=== PATIENT | female | born 1945 | race Caucasian/White ===

== ENCOUNTER 2020-07-26 14:15 | Outpatient (REF) | payer MEDICARE, OTHER, SELFPAY ==
[2020-07-26 15:00] LABS: Alanine Aminotransferase 33 U/L (0-31); Albumin Level 4.5 g/dL (3.5-5.0); Alkaline Phosphatase 102 U/L (39-117); Aspartate Amino Transferase 29 U/L (5-31); Bilirubin Direct 0.6 mg/dL (0.0-0.5); Bilirubin Total 2.1 mg/dL (0.0-1.0); Total Protein 6.7 g/dL (6.5-8.0)
== END 2020-07-26 14:16 | disposition home or self-care (01) ==
LOC: HO.LNP 14:15
PROVIDERS: Visit Provider Internal Medicine
DX: E78.00 Pure hypercholesterolemia, unspecified (principal)
CPT/HCPCS: 80076

== ENCOUNTER 2020-08-23 10:18 | Outpatient (REF) | payer MEDICARE, OTHER, SELFPAY ==
[2020-08-23 11:13] LABS: Alanine Aminotransferase 43 U/L (0-31); Albumin Level 4.4 g/dL (3.5-5.0); Alkaline Phosphatase 101 U/L (39-117); Aspartate Amino Transferase 31 U/L (5-31); Bilirubin Direct 0.5 mg/dL (0.0-0.5); Bilirubin Total 1.4 mg/dL (0.0-1.0); Total Protein 6.5 g/dL (6.5-8.0)
== END 2020-08-23 10:19 | disposition home or self-care (01) ==
LOC: HO.LNP 10:18
PROVIDERS: Visit Provider Internal Medicine
DX: R79.89 Other specified abnormal findings of blood chemistry (principal)
CPT/HCPCS: 80076

== ENCOUNTER 2021-01-22 10:29 | Outpatient (REF) | payer MEDICARE, OTHER, SELFPAY ==
[2021-01-22 10:32] LABS: MANUAL DIFF FLAG NO
[2021-01-22 10:59] LABS: Basophils Percent Auto 0.7 % (0-2); Eosinophils Absolute Auto 0.2 X10*3/uL (0.0-0.4); Eosinophils Percent Auto 2.8 % (0-4); Hematocrit 45.6 % (37-47); Hemoglobin 15.1 g/dl (12.0-16.0); Imm Gran Abs Auto 0.01 X10*3/uL (0.00-0.03); Imm Gran Pct Auto 0.2 % (0.0-0.4); Lymphocytes Percent Auto 37.4 % (20-40); Mean Corpuscular HGB Conc 33.1 g/dl (31.0-35.0); Mean Corpuscular Hemoglobin 30.1 pg (27.0-33.0); Mean Corpuscular Volume 90.8 fL (80-98); Monocytes Absolute Auto 0.4 X10*3/uL (0.1-1.2); Monocytes Percent Auto 8.1 % (2-11); Neutrophils Absolute Auto 2.7 X10*3/uL (2.0-8.3); Neutrophils Percent Auto 50.8 % (45-73); Platelet Count 212 X10*3/uL (160-400); Red Blood Count 5.02 X10*6/uL (4.20-5.50); Red Cell Distribution Width 12.7 % (11.0-16.0); White Blood Count 5.4 X10*3/uL (4.8-10.8)
[2021-01-22 11:14] LABS: Alanine Aminotransferase 77 U/L (0-31); Albumin Level 4.2 g/dL (3.5-5.0); Alkaline Phosphatase 101 U/L (39-117); Anion Gap 11 (12-20); Aspartate Amino Transferase 43 U/L (5-31); Blood Urea Nitrogen 13 mg/dL (9-16); Calcium 9.3 mg/dL (8.4-10.2); Carbon Dioxide 27 mmol/L (22-29); Chloride 109 mmol/L (96-108); Cholesterol 165 mg/dL; Estimated Glomerular Filt Rate > 60; Glucose Fasting 88 mg/dL (60-99); HDL Cholesterol 61 mg/dL; LDL Cholesterol Calculated 88 mg/dl; Potassium 3.8 mmol/L (3.3-5.1); Sodium 143 mmol/L (135-145); Total Protein 6.3 g/dL (6.5-8.0); Triglycerides 82 mg/dL
[2021-01-22 11:23] LABS: Reflex LDLD? No
[2021-01-22 11:32] LABS: Appearance Urine CLEAR; Color Urine YELLOW; Glucose Urine UA NEG (NEG); Leukocyte Esterase Urine NEG (NEG); Nitrite Urine NEG (NEG); Urine Blood NEG (NEG); Urine Ketones NEG (NEG); Urine Protein NEG (NEG-TRACE)
== END 2021-01-22 10:30 | disposition home or self-care (01) ==
LOC: HO.LNP 10:29
PROVIDERS: Visit Provider Internal Medicine
DX: E78.00 Pure hypercholesterolemia, unspecified (principal); M85.80 Other specified disorders of bone density and structure, unspecified site; R79.89 Other specified abnormal findings of blood chemistry
CPT/HCPCS: 80053; 80061; 81003; 85025

== ENCOUNTER 2021-02-26 11:02 | Outpatient (REF) | payer MEDICARE, OTHER, SELFPAY ==
[2021-02-26 13:12] LABS: Alanine Aminotransferase 21 U/L (0-31); Albumin Level 4.4 g/dL (3.5-5.0); Alkaline Phosphatase 72 U/L (39-117); Aspartate Amino Transferase 25 U/L (5-31); Bilirubin Direct 0.5 mg/dL (0.0-0.5); Bilirubin Total 1.7 mg/dL (0.0-1.0); Total Protein 6.4 g/dL (6.5-8.0)
== END 2021-02-26 11:03 | disposition home or self-care (01) ==
LOC: HO.LNP 11:02
PROVIDERS: PCP Internal Medicine; Visit Provider Internal Medicine
DX: R79.89 Other specified abnormal findings of blood chemistry (principal)
CPT/HCPCS: 80076

== ENCOUNTER 2021-03-05 10:13 | Outpatient (REF) | payer MEDICARE, OTHER, SELFPAY ==
--- NOTE | ~2021-03-05 | US_ITS ---
EXAMINATION: US ABDOMEN COMPLETE CLINICAL INFORMATION: Elevated LFTs. COMPARISON: None TECHNIQUE: Real-time imaging of the abdominal viscera. FINDINGS: PANCREAS: Normal. ABDOMINAL AORTA: The proximal, mid, and distal segments are normal in caliber. INFERIOR VENA CAVA: Visualized portions are normal. LIVER: Normal. The liver is normal in size. The liver contour is normal. Parenchymal echogenicity is normal. No focal hepatic lesion. There is no intrahepatic biliary duct dilatation seen. GALLBLADDER: The gallbladder is physiologically distended without evidence of stones, polyps, wall thickening or pericholecystic fluid. There is echogenic debris and sludge seen. COMMON BILE DUCT: Normal in caliber measuring 0.4 cm in diameter. RIGHT KIDNEY: No hydronephrosis or renal calculi. The kidney measures 11.8 cm in maximum dimension. There is anechoic cyst in the upper pole measuring 1.8 x 1.1 x 1.3 cm and 6.8 x 4.7 x 6.0 cm. LEFT KIDNEY: No hydronephrosis. No renal calculi or focal parenchymal lesions. The kidney measures 10.2 cm in maximum dimension. There are several echogenic foci seen with no twinkle artifact. SPLEEN: Normal. The spleen measures 9.0 cm in maximum dimension. FREE FLUID: None. US/US abdomen complete IMPRESSION: Echogenic gallbladder sludge and debris. At least 2 right renal cyst. No echogenic renal calculi or hydronephrosis. Few scattered echogenic foci with no twinkle artifact left kidney. Rest of the abdominal ultrasound is unremarkable.
== END 2021-03-05 10:14 | disposition home or self-care (01) ==
LOC: HO.US 10:13
PROVIDERS: PCP Internal Medicine; Visit Provider Internal Medicine
DX: R79.89 Other specified abnormal findings of blood chemistry (principal)
CPT/HCPCS: 76700

== ENCOUNTER 2021-06-11 10:24 | Outpatient (REF) | payer MEDICARE, OTHER, SELFPAY ==
[2021-06-11 11:01] LABS: Alanine Aminotransferase 17 U/L (0-31); Albumin Level 4.3 g/dL (3.5-5.0); Alkaline Phosphatase 74 U/L (39-117); Aspartate Amino Transferase 26 U/L (5-31); Bilirubin Direct 0.4 mg/dL (0.0-0.5); Bilirubin Total 1.5 mg/dL (0.0-1.0); Cholesterol 265 mg/dL; HDL Cholesterol 71 mg/dL; LDL Cholesterol Calculated 174 mg/dl; Total Protein 6.6 g/dL (6.5-8.0); Triglycerides 103 mg/dL
[2021-06-11 11:17] LABS: Reflex LDLD? No
[2021-06-15 05:32] LABS: Lipoprotein A 11 nmol/L (<75)
== END 2021-06-11 10:25 | disposition home or self-care (01) ==
LOC: HO.LNP 10:24
PROVIDERS: Visit Provider Internal Medicine
DX: E78.00 Pure hypercholesterolemia, unspecified (principal)
CPT/HCPCS: 80061; 80076; 83695

== ENCOUNTER 2021-08-07 11:43 | Emergency (ER) | payer MEDICARE, OTHER, SELFPAY ==
--- NOTE | ~2021-08-07 | XR_ITS ---
EXAMINATION: XR CHEST CLINICAL INFORMATION: Shortness of breath, COVID COMPARISON: None TECHNIQUE: Portable upright AP view of the chest is performed. Preliminary wet read provided earlier at time of IT downtime. FINDINGS: The lungs are clear. There is no airspace consolidation or groundglass opacity or effusion. The heart is within limits of normal size. The hilar and mediastinal contours are normal. There are multilevel degenerative changes spine. XR/XR chest 1V IMPRESSION: Unremarkable examination.
[2021-08-07 11:55] VITALS: BP 149/93; PULSE 68; RESP 18; TEMP 37; O2SAT 97; BMI 26.7
[2021-08-07 14:01] VITALS: BP 131/82; PULSE 61; TEMP 37.5; O2SAT 96
--- NOTE | 2021-08-07 14:20 | ED.GENADULT ---
HPI - General Adult General Chief complaint: Dyspnea Stated complaint: Covid+/SOB Time Seen by Provider: 08/07/21 13:57 Source: patient and family History of Present Illness HPI narrative: Patient with recent URI symptoms. Yesterday diagnosed with COVID-19. Her symptoms started 3 days ago. Her PCP prescribed Paxil of it yesterday. This morning, however, she woke up short of breath with audible wheezing. No history of asthma or smoking. She does get tracheal bronchitis in the fall for the last several years and this seems similar but she has never wheezed like this before. She has been on prednisone for the bronchitis. No fevers or chills. Currently is feeling much better and her breathing is improved compared to this morning. She called her PCP about the symptoms and they recommended she come to the emergency department for evaluation and treatment Related Data Previous Rx's Medication Instructions Recorded albuterol sulfate 90 mcg/actuation 2 puff INHALATION QID PRN #8.5 g 08/07/21 aerosol inhaler (Ventolin HFA) prednisone 20 mg tablet 20 mg PO DAILY #5 tab 08/07/21 Allergies Allergy/AdvReac Type Severity Reaction Status Date / Time No Known Allergies Allergy Unverified 12/29/19 15:44 [No Known Allergies*] Review of Systems Constitutional: Comments: No fevers or chills ENT: Comments: Mild sore throat Cardiovascular: Comments: No chest pain Respiratory: Comments: Cough with wheezing this morning Gastrointestinal: Comments: No nausea vomiting abdominal pain Integumentary/Breasts: Comments: No rash PMFSH Past Medical History Medical History (Updated 08/07/21 @ 14:25 by Ricardo Arias MD) Hyperlipidemia Social History Social History Advance Directives: No Advance Directives Information Provided: No Physical Exam ED Vital Signs: Vital Signs - 24 hr 08/07/21 11:55 08/07/21 14:01 Temperature 98.6 F 99.5 F Pulse Rate 68 61 Respiratory Rate 18 Blood Pressure 149/93 H 131/82 Pulse Oximetry 97 96 BMI result Body Mass Index 26.7 Const Other: Awake and alert no acute distress Resp Other: Clear and equal bilaterally with good air entry. No evidence of wheezing at the moment Cardio Other: Regular rate and rhythm without murmurs rubs or gallops GI Other: Soft nontender nondistended Skin Other: Warm pink and dry Neuro Other: Nonfocal Course Course Course Narrative: COVID-19 infection with intermittent wheezing. Pneumonia PE Reactive airways Portable chest x-ray Lab work including D-dimer Will treat with prednisone in the meantime 16:20. Workup shows normal labs and normal x-ray. Patient is feeling much better. Currently without complaint Stable for discharge home. Medical Decision Making Lab Data Result diagrams: 08/07/21 15:27 08/07/21 15:28 Labs: Lab Results 08/07/21 08/07/21 08/07/21 Range/Units 15: 15: 15:28 WBC 7.8 (4.8-10.8) X10*3/uL RBC 5.14 (4.20-5.50) X10*6/uL Hgb 15.5 (12.0-16.0) g/dl Hct 46.8 (37.0-47.0) % MCV 91.1 (80.0-98.0) fL MCH 30.2 (27.0-33.0) pg MCHC 33.1 (31.0-35.0) g/dl RDW 13.1 (11.0-16.0) % Plt Count 188 (160-400) X10*3/uL MPV 10.4 (9.4-12.3) fL Immature Gran % (Auto) 0.4 (0.0-0.4) % Neut % (Auto) 67.5 (45-73) % Lymph % (Auto) 20.8 (20-40) % [place] % (Auto) 10.3 (2-11) % Eos % (Auto) 0.6 (0-4) % Baso % (Auto) 0.4 (0-2) % Lymph # (Auto) 1.6 (1.2-4.9) X10*3/uL [place] # (Auto) 0.8 (0.1-1.2) X10*3/uL Eos # (Auto) 0.1 (0.0-0.4) X10*3/uL Baso # (Auto) 0.0 (0.0-0.2) X10*3/uL Abs Immat Gran (auto) 0.03 (0.00-0.03) X10*3/uL Absolute Neuts (auto) 5.3 (2.0-8.3) x10*3/uL Absolute Nucleated RBC 0.000 (0.0-0.012) X10*3/uL Nucleated RBC % (auto) 0.0 (0.0-0.2) /100WBC D-Dimer High Sensitivty < 150 NG/ML Sodium 140 (135-145) mmol/L Potassium 4.3 (3.3-5.1) mmol/L Chloride 105 (96-108) mmol/L Carbon Dioxide 27 (22-29) mmol/L Anion Gap 12 (12-20) BUN 14 (9-16) mg/dL Creatinine 0.72 (0.5-1.4) mg/dL Estim Creat Clear Calc 63.1 Estimated GFR > 60 Random Glucose 98 (60-115) mg/dL Calcium 9.9 D (8.4-10.2) mg/dL Total Bilirubin 1.7 H (0.0-1.0) mg/dL AST 37 H D (5-31) U/L ALT 51 H (0-31) U/L Alkaline Phosphatase 117 D (39-117) U/L Total Protein 6.6 (6.5-8.0) g/dL Albumin 4.3 (3.5-5.0) g/dL Discharge Plan Discharge Clinical Impression: COVID-19, Asthma with exacerbation Patient Disposition: Home, Self-Care Instructions: Asthma (ED), COVID-19 (Coronavirus Disease 2019) (ED) Prescriptions: New albuterol sulfate [Ventolin HFA] 90 mcg/actuation HFA aerosol inhaler 2 puff inhalation QID PRN (Reason: shortness of breath or wheezing) Qty: 8.5 0RF prednisone 20 mg tablet 20 mg PO DAILY Qty: 5 0RF
[2021-08-07] MEDS: predniSONE 20 MG TABLET 40 MG PO (14:52)
[2021-08-07 15:31] LABS: MANUAL DIFF FLAG NO
[2021-08-07 15:43] LABS: Basophils Percent Auto 0.4 % (0-2); Eosinophils Absolute Auto 0.1 X10*3/uL (0.0-0.4); Eosinophils Percent Auto 0.6 % (0-4); Hematocrit 46.8 % (37.0-47.0); Hemoglobin 15.5 g/dl (12.0-16.0); Imm Gran Abs Auto 0.03 X10*3/uL (0.00-0.03); Imm Gran Pct Auto 0.4 % (0.0-0.4); Lymphocytes Absolute Auto 1.6 X10*3/uL (1.2-4.9); Lymphocytes Percent Auto 20.8 % (20-40); Mean Corpuscular HGB Conc 33.1 g/dl (31.0-35.0); Mean Corpuscular Hemoglobin 30.2 pg (27.0-33.0); Mean Corpuscular Volume 91.1 fL (80.0-98.0); Mean Platelet Volume 10.4 fL (9.4-12.3); Monocytes Absolute Auto 0.8 X10*3/uL (0.1-1.2); Monocytes Percent Auto 10.3 % (2-11); Neutrophils Absolute Auto 5.3 x10*3/uL (2.0-8.3); Neutrophils Percent Auto 67.5 % (45-73); Platelet Count 188 X10*3/uL (160-400); Red Blood Count 5.14 X10*6/uL (4.20-5.50); Red Cell Distribution Width 13.1 % (11.0-16.0); White Blood Count 7.8 X10*3/uL (4.8-10.8)
[2021-08-07 15:51] LABS: D Dimer High Sensitivity < 150 NG/ML
[2021-08-07 15:54] LABS: Alanine Aminotransferase 51 U/L (0-31); Albumin Level 4.3 g/dL (3.5-5.0); Alkaline Phosphatase 117 U/L (39-117); Anion Gap 12 (12-20); Aspartate Amino Transferase 37 U/L (5-31); Bilirubin Total 1.7 mg/dL (0.0-1.0); Blood Urea Nitrogen 14 mg/dL (9-16); Calcium 9.9 mg/dL (8.4-10.2); Carbon Dioxide 27 mmol/L (22-29); Chloride 105 mmol/L (96-108); Creatinine Clr Calc Pharmacy 63.1; Estimated Glomerular Filt Rate > 60; Glucose Random 98 mg/dL (60-115); Potassium 4.3 mmol/L (3.3-5.1); Sodium 140 mmol/L (135-145); Total Protein 6.6 g/dL (6.5-8.0)
== END 2021-08-07 16:41 | disposition home or self-care (01) ==
PROVIDERS: Emergency Provider Emergency Medicine; PCP Internal Medicine
DX: U07.1 COVID-19 (principal); J45.901 Unspecified asthma with (acute) exacerbation
CPT/HCPCS: 36415; 71045; 80053; 85025; 85379; 99283; 99284

== ENCOUNTER 2021-09-20 10:30 | Outpatient (REF) | payer MEDICARE, OTHER, SELFPAY ==
[2021-09-20 11:11] LABS: Alanine Aminotransferase 18 U/L (0-31); Albumin Level 4.3 g/dL (3.5-5.0); Alkaline Phosphatase 78 U/L (39-117); Aspartate Amino Transferase 27 U/L (5-31); Bilirubin Direct 0.5 mg/dL (0.0-0.5); Bilirubin Total 1.6 mg/dL (0.0-1.0); Cholesterol 227 mg/dL; HDL Cholesterol 54 mg/dL; LDL Cholesterol Calculated 155 mg/dl; Total Protein 6.7 g/dL (6.5-8.0); Triglycerides 92 mg/dL
== END 2021-09-20 10:31 | disposition home or self-care (01) ==
LOC: HO.LNP 10:30
PROVIDERS: Visit Provider Internal Medicine
DX: E78.00 Pure hypercholesterolemia, unspecified (principal)
CPT/HCPCS: 80061; 80076

== ENCOUNTER 2021-11-28 11:52 | Outpatient (REF) | payer MEDICARE, OTHER, SELFPAY ==
[2021-11-28 12:32] LABS: Alanine Aminotransferase 18 U/L (0-31); Albumin Level 4.3 g/dL (3.5-5.0); Alkaline Phosphatase 74 U/L (39-117); Aspartate Amino Transferase 25 U/L (5-31); Bilirubin Direct 0.4 mg/dL (0.0-0.5); Bilirubin Total 0.9 mg/dL (0.0-1.0); Cholesterol 201 mg/dL; HDL Cholesterol 64 mg/dL; LDL Cholesterol Calculated 120 mg/dl; Total Protein 6.7 g/dL (6.5-8.0); Triglycerides 85 mg/dL
[2021-11-28 12:57] LABS: Reflex LDLD? No
== END 2021-11-28 11:53 | disposition home or self-care (01) ==
LOC: HO.LNP 11:52
PROVIDERS: Visit Provider Internal Medicine
DX: E78.00 Pure hypercholesterolemia, unspecified (principal)
CPT/HCPCS: 80061; 80076

== ENCOUNTER 2022-01-24 10:42 | Outpatient (REF) | payer MEDICARE, OTHER, SELFPAY ==
[2022-01-24 10:44] LABS: MANUAL DIFF FLAG NO
[2022-01-24 11:07] LABS: Basophils Absolute Auto 0.1 X10*3/uL (0.0-0.2); Basophils Percent Auto 0.9 % (0-2); Eosinophils Absolute Auto 0.2 X10*3/uL (0.0-0.4); Eosinophils Percent Auto 2.6 % (0-4); Hemoglobin 15.2 g/dl (12.0-16.0); Imm Gran Abs Auto 0.02 X10*3/uL (0.00-0.03); Imm Gran Pct Auto 0.3 % (0.0-0.4); Lymphocytes Percent Auto 34.9 % (20-40); Mean Corpuscular HGB Conc 32.3 g/dl (31.0-35.0); Mean Corpuscular Volume 89.5 fL (80.0-98.0); Monocytes Absolute Auto 0.4 X10*3/uL (0.1-1.2); Monocytes Percent Auto 6.1 % (2-11); Neutrophils Absolute Auto 3.2 x10*3/uL (2.0-8.3); Neutrophils Percent Auto 55.2 % (45-73); Platelet Count 232 X10*3/uL (160-400); Red Blood Count 5.25 X10*6/uL (4.20-5.50); Red Cell Distribution Width 12.7 % (11.0-16.0); White Blood Count 5.7 X10*3/uL (4.8-10.8)
[2022-01-24 11:12] LABS: Appearance Urine Clear; Color Urine Yellow; Glucose Urine UA Negative (Negative); Leukocyte Esterase Urine Negative (Negative); Nitrite Urine Negative (Negative); Specific Gravity - Urine 1.015 (1.005-1.025); Urine Blood Negative (Negative); Urine Ketones Negative (Negative); Urine Protein Negative (Neg-Trace)
[2022-01-24 11:18] LABS: Bacteria Urine None Seen (None Seen); Hyaline Casts Urine 0-2 /LPF (0-2); RBC Urine 0-2 /HPF (0-2); Squamous Epithelial Cell Urine 0-2 /HPF (0-2); WBC Urine 0-5 /HPF (0-5)
[2022-01-24 11:34] LABS: Alanine Aminotransferase 21 U/L (0-31); Albumin Level 4.4 g/dL (3.5-5.0); Alkaline Phosphatase 83 U/L (39-117); Anion Gap 16 (12-20); Aspartate Amino Transferase 28 U/L (5-31); Bilirubin Total 1.4 mg/dL (0.0-1.0); Blood Urea Nitrogen 19 mg/dL (9-16); Calcium 9.3 mg/dL (8.4-10.2); Carbon Dioxide 25 mmol/L (22-29); Chloride 107 mmol/L (96-108); Cholesterol 206 mg/dL; Estimated Glomerular Filt Rate > 60; Glucose Fasting 83 mg/dL (60-99); HDL Cholesterol 64 mg/dL; LDL Cholesterol Calculated 124 mg/dl; Potassium 4.3 mmol/L (3.3-5.1); Sodium 144 mmol/L (135-145); Total Protein 6.5 g/dL (6.5-8.0); Triglycerides 90 mg/dL
== END 2022-01-24 10:43 | disposition home or self-care (01) ==
LOC: HO.LNP 10:42
PROVIDERS: Visit Provider Internal Medicine
DX: E78.00 Pure hypercholesterolemia, unspecified (principal); Z87.448 Personal history of other diseases of urinary system
CPT/HCPCS: 80053; 80061; 81001; 85025

== ENCOUNTER 2022-08-15 15:53 | Outpatient (REF) | payer MEDICARE, OTHER, SELFPAY ==
[2022-08-15 15:56] LABS: MANUAL DIFF FLAG NO
[2022-08-15 16:00] LABS: Basophils Absolute Auto 0.1 X10*3/uL (0.0-0.2); Basophils Percent Auto 0.8 % (0-2); Eosinophils Absolute Auto 0.2 X10*3/uL (0.0-0.4); Hematocrit 49.9 % (37.0-47.0); Hemoglobin 16.1 g/dl (12.0-16.0); Imm Gran Abs Auto 0.03 X10*3/uL (0.00-0.03); Imm Gran Pct Auto 0.4 % (0.0-0.4); Lymphocytes Absolute Auto 2.4 X10*3/uL (1.2-4.9); Lymphocytes Percent Auto 33.6 % (20-40); Mean Corpuscular HGB Conc 32.3 g/dl (31.0-35.0); Mean Corpuscular Hemoglobin 29.8 pg (27.0-33.0); Mean Corpuscular Volume 92.4 fL (80.0-98.0); Mean Platelet Volume 10.8 fL (9.4-12.3); Monocytes Absolute Auto 0.5 X10*3/uL (0.1-1.2); Monocytes Percent Auto 6.4 % (2-11); Neutrophils Percent Auto 55.8 % (45-73); Platelet Count 294 X10*3/uL (160-400); Red Cell Distribution Width 12.9 % (11.0-16.0); White Blood Count 7.2 X10*3/uL (4.8-10.8)
[2022-08-15 16:01] LABS: Appearance Urine Clear; Color Urine Dark Yellow; Glucose Urine UA Negative (Negative); Leukocyte Esterase Urine Trace (Negative); Nitrite Urine Negative (Negative); PH 5.5 (5.0-9.0); Specific Gravity - Urine >= 1.030 (1.005-1.025); UMIC TRIGGER UA YES; Urine Blood Negative (Negative); Urine Ketones Trace mg/dL (Negative); Urine Protein Negative (Neg-Trace)
[2022-08-15 16:07] LABS: Bacteria Urine None Seen (None Seen); Hyaline Casts Urine 0-2 /LPF (0-2); RBC Urine 0-2 /HPF (0-2); Squamous Epithelial Cell Urine 0-2 /HPF (0-2); WBC Urine 0-5 /HPF (0-5)
[2022-08-15 16:16] LABS: Alanine Aminotransferase 17 U/L (0-31); Albumin Level 4.4 g/dL (3.5-5.0); Alkaline Phosphatase 81 U/L (39-117); Anion Gap 11 (12-20); Aspartate Amino Transferase 23 U/L (5-31); Bilirubin Total 1.7 mg/dL (0.0-1.0); Blood Urea Nitrogen 20 mg/dL (9-16); Calcium 9.5 mg/dL (8.4-10.2); Carbon Dioxide 29 mmol/L (22-29); Chloride 108 mmol/L (96-108); Cholesterol 210 mg/dL; Estimated Glomerular Filt Rate > 60; Glucose Fasting 81 mg/dL (60-99); HDL Cholesterol 57 mg/dL; LDL Cholesterol Calculated 134 mg/dl; Potassium 4.6 mmol/L (3.3-5.1); Sodium 143 mmol/L (135-145); Total Protein 6.6 g/dL (6.5-8.0); Triglycerides 97 mg/dL
[2022-08-15 16:31] LABS: Vitamin D 25-OH Total 70.5 ng/mL (>30)
== END 2022-08-15 15:54 | disposition home or self-care (01) ==
LOC: HO.LNP 15:53
PROVIDERS: Visit Provider Internal Medicine
DX: E78.00 Pure hypercholesterolemia, unspecified (principal)
CPT/HCPCS: 80053; 80061; 81001; 82306; 85025

== ENCOUNTER 2022-11-11 14:08 | Outpatient (AMB) | payer MEDICARE, OTHER, SELFPAY ==
--- NOTE | 2022-11-11 14:09 | A.OFFVIS_ITS ---
Intake Vital Signs 11/11/22 14:14 Height 5 ft 3 in Weight 157 lb 13.616 oz BMI 28.0 BP 146/80 H Pulse 62 Pulse Oximetry (%) 98 Intake Visit Reasons: NPV/Bombardier/Abnormal ECG Hauling Contractor Required: No Accompanied by: Self / Same As Patient Allergies No Known Allergies [No Known Allergies*] Allergy (Unverified 11/11/22 14:13) Medication List - Last Reconciled 11/11/22 by Vinod Redman MD albuterol sulfate 90 mcg/actuation (Ventolin HFA) 2 puffs inhalation QID PRN atorvastatin 10 mg PO DAILY HPI HPI Comments History of Present Illness Details Brionna is here for consultation regarding an abnormal EKG. She apparently had a routine EKG recently and that was thought to be abnormal and different from before and hence she has been referred here. Patient herself does not have any known cardiac issues. No history of any coronary disease myocardial infarction or cardiomyopathy. She does not get any chest pains but she can get short of breath with activity. Her blood pressures are on the higher side but she states she does not have hypertension. A prior blood pressure from last year was also high at 149/93 mm Hg. [facility] Medical History (Updated 11/11/22 @ 14:55 by Vinod Redman MD) Cataract Hyperlipidemia Family History (Updated 11/11/22 @ 14:19 by Linda Brand CMA) Father Heart murmur Social History (Updated 11/11/22 @ 14:18 by Linda Brand CMA) Alcohol intake: current Alcohol intake frequency: holidays/special occasions only Patient Tobacco Use Status: Never used Tobacco Review of Systems Const Denies chills, Denies daytime sleepiness, Denies fatigue, Denies fever(s), Denies frequent falls, Denies night sweats, Denies snoring, Denies weakness, Denies weight gain and Denies weight loss Eyes Denies loss of vision ENT Denies dizziness and Denies hearing loss Card Denies chest pain, Denies chest pain with activity, Denies syncope, Denies rapid heart rate, Denies edema, Denies claudication, Denies leg edema, Denies lightheadedness, Denies palpitations, Denies dyspnea, Denies dyspnea on exertion and Denies orthopnea Resp Denies cough, Denies excessive phlegm production, Denies dyspnea, Denies dyspnea on exertion, Denies snoring and Denies wheezing GI Denies abdominal pain, Denies hematochezia, Denies change in bowel habits, Denies change in stool character, Denies heartburn, Denies nausea and Denies vomiting Denies hematuria, Denies urinary frequency and Denies dysuria Musc Denies arthralgias, Denies muscle weakness, Denies numbness and Denies tingling Skin/Breast Denies nail changes and Denies rash Neuro Denies Abnormal speech present, Denies dizziness, Denies syncope, Denies frequent falls, Denies loss of vision, Denies memory loss, Denies numbness, Denies tingling and Denies weakness Psych Denies depression and Denies memory loss Endo Denies fatigue and Denies palpitations Aller/Immun Denies wheezing Physical Exam Vital Signs: Last Vital Signs Pulse 62 11/11/22 14:14 BP 146/80 H 11/11/22 14:14 Pulse Ox 98 11/11/22 14:14 BMI result Body Mass Index 28.0 Const General: comfortable and no acute distress Orientation/consciousness: patient oriented x3 HEENT Other: Unremarkable Head: Yes normal to inspection Neck Neck: Yes normal visual inspection Chest Chest palpation & inspection: normal inspection of the chest Resp Auscultation: clear to auscultation bilaterally Cardio Palpation: normal PMI Heart sounds: S1 normal heart sound present, S2 normal heart sound present, no gallops, no murmurs and no rubs GI Palpation (GI): Soft to palpation Back/Spine/Pelvis Other: unremarkable Skin General skin exam: no rashes or lesions noted Neuro General: patient oriented x3 Speech: No Abnormal speech present Extrem General: Yes normal to inspection Psych Mental Status: mental status grossly normal Office Procedures EKG Details: EKG with sinus rhythm at 61/Min; leftward axis; incomplete right bundle-branch block; nonspecific ST-[place] [id number]-[id number], Complete Assessment & Plan Assessment & Plan (1) Abnormal EKG: Code(s): R94.31 - Abnormal electrocardiogram [ECG] [EKG] (2) Elevated blood pressure reading without diagnosis of hypertension: Code(s): R03.0 - Elevated blood-pressure reading, without diagnosis of hypertension Plan Nonspecific ST-T changes on the EKG. No overt symptoms apart from shortness of breath with activity. Possible hypertension but not treated. Discussed with patient. Recommend an echocardiogram and exercise stress perfusion imaging study for further evaluation. Based on the findings, can plan further care. Advised home blood pressure monitoring. If still high, then may need medications. Follow-up in a few weeks time. Orders: Orders CA stress test Today R07.2 - Precordial pain, R94.31 - Abnormal electrocardiogram [ECG] [EKG] CA echo transthoracic complete Today I25.10 - Atherosclerotic heart disease of [place] coronary artery without angina pectoris, R94.31 - Abnormal electrocardiogram [ECG] [EKG] NM cardiolite stress test Today R07.2 - Precordial pain, R94.31 - Abnormal electrocardiogram [ECG] [EKG] Coding Level of Care Code New Pt Level 4 (01799) Diagnoses Abnormal EKG R94.31 Elevated blood pressure reading without diagnosis of hypertension R03.0 CPT Codes EKG - CPT: 06722-[id number], Complete ([id number])
[2022-11-11 14:14] VITALS: BP 146/80; PULSE 62; O2SAT 98; BMI 28.0
== END 2022-11-11 14:41 | disposition home or self-care (01) ==
PROVIDERS: PCP Internal Medicine; Visit Provider Internal Medicine
DX: R94.31 Abnormal electrocardiogram [ECG] [EKG] (principal); R03.0 Elevated blood-pressure reading, without diagnosis of hypertension
CPT/HCPCS: 93010; 99204

== ENCOUNTER → 2022-11-11 14:08 | Outpatient (BNVA) | payer MEDICARE, OTHER, SELFPAY | PROVIDERS: PCP Internal Medicine; Visit Provider Internal Medicine | DX: I25.10 Atherosclerotic heart disease of native coronary artery without angina pectoris (principal); R07.2 Precordial pain; I45.19 Other right bundle-branch block; R94.31 Abnormal electrocardiogram [ECG] [EKG]; R03.0 Elevated blood-pressure reading, without diagnosis of hypertension | CPT/HCPCS: 93005; 99202 ==

== ENCOUNTER 2022-11-14 11:29 | Outpatient (REF) | payer MEDICARE, OTHER, SELFPAY ==
[2022-11-14 15:30] LABS: Vitamin D 25-OH Total 64.9 ng/mL (>30)
== END 2022-11-14 11:30 | disposition home or self-care (01) ==
LOC: HO.LNP 11:29
PROVIDERS: Visit Provider Internal Medicine
DX: E67.3 Hypervitaminosis D (principal)
CPT/HCPCS: 82306

== ENCOUNTER → 2022-12-11 08:48 | Outpatient (REF) | payer MEDICARE, OTHER, SELFPAY ==
--- NOTE | ~2022-12-11 | NM_ITS ---
Exercise Myocardial perfusion study Indication: Precordial pain to evaluate for myocardial ischemia Technique: The patient was brought in for an exercise perfusion study on 12/11/2022. Patient performed exercise as per Cliff protocol and was injected 25 mCi of sestamibi was given intravenously one target HR was achieved. Images were obtained using the SPECT gamma camera interlaced with the gating device. Images were obtained in supine position. Resting perfusion study was performed on 12/12/2022. Patient was administered 25 mCi of sestamibi intravenously at rest. Images were then obtained in supine position. Images obtained with and without CT attenuation. Total DLP 94 mGy-cm. Images were processed with the software and compared side to side in short axis, horizontal long axis and vertical long axis views. Findings: The stress perfusion study showed non attenuated images show minimal thinning of the basal lateral wall of the LV myocardium. Remainder of the LV myocardium normally perfused. Attenuation corrected images show normal uptake of radiotracer in all segments of LV myocardium. The gated study shows normal LV systolic function with calculated LVEF of 51%. LV cavity is normal in size. The gated study shows normal systolic wall thickening and contraction of all segments. There is no transient ischemic dilation. Resting study shows no change in perfusion pattern compared to stress perfusion study. Gating at rest reveals normal systolic wall motion with ejection fraction at greater than 50%. The findings are consistent with normal myocardial perfusion. NM/NM cardiolite stress test Impression: 1. Normal myocardial perfusion 2. Gated LVEF is 51% 3. Transient ischemic dilatation not present Stress EKG is negative for ischemia
--- NOTE | 2022-12-11 09:56 | CA_ITS ---
Acquisition Time: 2022-12-11 10:02:57 Total Exercise Time: 00:09:09 Test Indications: Abnormal ECG Medications: ALBUTEROL ATORVASTATIN Protocol: CECILIA Max HR: 133 BPM 94% of Pred: 141 BPM Max BP: 188/074 mmHG Max Work Load: 10.3 METS Exercise stress test exercise 9 min 9 sec of Cecilia protocol achieving 87% MPHR, without anginal symptoms, with isolated PACs, with nornotensive response to exercise, T wave inversion lead 2 . Nuclear images pending. Test reviewed with Dr. Nolasco. Referred By: Guanako Redman Overread By: GUANAKO REDMAN
--- NOTE | 2022-12-11 09:56 | CA_ITS ---
Transthoracic Echocardiogram Patient (Last, First, Middle): Brionna Vides, Gender: Female Date of : 1945 Age: 77 Procedure Date: 12/11/2022 Procedure Type: Transthoracic Echocardiogram Location: OP Height: 160.02 cm Weight: 70.76 kg BSA: 1.74 m2 Heart Rate: 93 bpm BP: 130 / 81 mmHg Dumper Mold Cleaner: GARFIELD Referring MD: Vinod Redman MD Civil Design Specialist: Dominic Pisano MD Symptoms: I25.10 - Atherosclerotic heart disease of [place] coronary artery without... Study Quality: Adequate ECG Rhythm: Sinus with extra beats Conclusions: - 1. Normal LV ejection fraction 55-60% with impaired relaxation filling pattern 2. Mild aortic regurgitation and early mild aortic stenosis 3. Mildly dilated ascending aorta at 3.9 cm 4. No gross pericardial effusion Findings Left Ventricle Normal left ventricular size, thickness, and systolic function. The visually estimated ejection fraction is between 55-60%. Regional wall motion abnormalities can not be excluded due to suboptimal endocardial definition. Spectral Doppler is indicative of an impaired relaxation filling pattern. E/E prime ratio is between 8 and 15 consistent with indeterminate filling pressures. Peak GLS is -17.0%, borderline low. Right Ventricle Normal right ventricular cavity size and systolic function. Atria The left atrium is normal in size. There is lipomatous hypertrophy of the interatrial septum. Interatrial shunt cannot be excluded. Aortic Valve The aortic valve was not well visualized. There is mild aortic valve stenosis. There is mild aortic valve regurgitation. Mitral Valve There is mild anterior and posterior mitral leaflet thickening. There is trace mitral valve regurgitation. There is no mitral valve stenosis. Pulmonic Valve The pulmonic valve was not well visualized. There is trace pulmonic valve regurgitation. Tricuspid Valve Likely normal tricuspid valve structure and function. Tricuspid regurgitation envelope is inadequate for calculation of right ventricular systolic pressure. Normal right atrial pressure. Great Vessels The pulmonary artery was not well visualized. There is mild dilatation of the ascending aorta measuring 3.90 cm. Venous The inferior vena cava is normal in size and collapses greater than 50% with inspiration. Pericardium/Pleural There is no evidence of pericardial effusion. Prior Study Comparison No prior study available for comparison. Measurements 2D Linear Measurements IVSd: 1.11 0.6-0.9/0.6-1.0 cm LVIDd: 4.92 3.9-5.3/4.2-5.9 cm LVIDd Index: 2.83 2.4-3.2/2.2-3.1 cm/m2 LVIDs: 3.42 2.0-3.6 cm LVPWd: 0.95 0.7-1.1 cm LA Diam: 3.50 2.7-3.8/3.0-4.0 cm LAIDs Index: 2.01 1.5-2.3 cm/m2 LV Mass: 229.96 67-162/88-224 g LV Mass Index: 132.16 43-95/49-115 g/m2 LVOT Diam: 1.90 3.0+(-)1.3 cm 2D Systolic Function EF 4C: 53.60 >55% EF 2C: 55.90 >55% EF BiP: 56.00 >55% Mitral Valve MV Pk E: 0.36 MV PK A: 0.80 MV Decel Time: 318.00 E/A: 0.40 E'Lateral: 3.73 E'Medial: 3.92 E/E' Med: 9.10 E/E' Lat: 9.50 PHT: 93.00 MVA PHT: 2.37 Decel [place]: 1.12 Aortic Valve AoV Pk [place]: 1.65 AoV Mn [place]: 1.23 AoV VTI: 0.40 AoV Pk Grad: 11.00 Aov Mn Grad: 7.00 NATI Cont.VTI: 1.53 AI Pk [place]: 4.99 AI [place]: 1.71 LVOT LVOT Pk [place]: 0.82 LVOT Mn [place]: 0.54 LVOT VTI: 0.22 LVOT Pk Grad: 3.00 LVOT Mn Grad: 1.00 LVOT Diam: 1.90 LVOT Area: 2.84 Diastolic Function MV Pk E: 0.36 MV Pk A: 0.80 E/A: 0.40 E'Medial: 3.92 E/E' Med: 9.10 E' Laterial: 3.73 E/E' Lat: 9.50 Right Ventricle TAPSE (mm): 26.00 TVS' Nghia: 24.20 Tricuspid Valve RA Press: 3.00 Great Vessels Aorta Sinus of Valsalva: 2.39 2.0-3.[address] [place]: 2.39 1.7-3.4 cm Ao Asc: 3.90 2.1-3.4 cm Updated in Other Vendor System with Status of Final Dominic Pisano MD electronically signed on 12/12/2022 2:44:26 PM with status of Final
== END ==
LOC: HO.CARD 08:48
PROVIDERS: PCP Internal Medicine; Visit Provider Internal Medicine
DX: R07.2 Precordial pain (principal); I25.10 Atherosclerotic heart disease of native coronary artery without angina pectoris; R94.31 Abnormal electrocardiogram [ECG] [EKG]
CPT/HCPCS: 78452; 93017; 93306; A9500

== ENCOUNTER → 2022-12-11 09:56 | Outpatient (BNV) | payer MEDICARE, OTHER, SELFPAY | PROVIDERS: PCP Internal Medicine; Visit Provider Internal Medicine Cardiovascular Disease | DX: R94.31 Abnormal electrocardiogram [ECG] [EKG] (principal) | CPT/HCPCS: 78452; 93016; 93018; 93306 ==

== ENCOUNTER 2023-01-27 13:39 | Outpatient (AMB) | payer MEDICARE, OTHER, SELFPAY ==
[2023-01-27 13:42] VITALS: BP 140/82; PULSE 72; BMI 28.0
--- NOTE | 2023-01-27 13:42 | A.OFFVIS_ITS ---
Intake Vital Signs 01/27/23 13:42 Height 5 ft 3 in Weight 158 lb 4.67 oz BMI 28.0 BP 140/82 H Blood Pressure Location Lt brachial Position Sitting Pulse 72 Pulse Source Pulse Oximeter Intake Visit Reasons: f/up stress/ echo HS Intake Note: f/u after testing Shipping Receiving Manager Required: No Allergies No Known Allergies [No Known Allergies*] Allergy (Verified 01/27/23 13:45) Medication List - Last Reconciled 01/27/23 by Elisabeth Peters NP-C albuterol sulfate 90 mcg/actuation (Ventolin HFA) 2 puffs inhalation QID PRN pravastatin 20 mg PO DAILY HPI f/up stress/ echo HS HPI Details Brionna is a 77-year-old female with past medical history of hyperlipidemia, elevated blood pressures without diagnosis of hypertension, abnormal finding on EKG who recently had an echocardiogram and stress test and now presents for follow-up. Today she reports that she feels very well with no concerning symptoms. She denies chest discomfort at rest or with activity. No shortness of breath, palpitations, presyncope, syncope, PND, orthopnea or edema. She tells me she walks the golf course and place 9 holes at a time which she already did this morning. She also plays tennis and pickle ball which she tolerates without symptoms. [facility] Medical History Cataract Hyperlipidemia Family History Father Heart murmur Social History Alcohol intake: current Alcohol intake frequency: holidays/special occasions only Patient Tobacco Use Status: Never used Tobacco Review of Systems Const All systems reviewed & are unremarkable except as noted in HPI and below ENT Denies dizziness Card Denies chest pain, Denies chest pain at rest, Denies chest pain with activity, Denies rapid heart rate, Denies pedal edema, Denies edema, Denies leg edema, Denies lightheadedness, Denies palpitations, Denies dyspnea, Denies dyspnea on exertion and Denies orthopnea Resp Denies cough, Denies dyspnea and Denies dyspnea on exertion GI Denies hematochezia and Denies change in stool character Musc Denies abnormal gait, Denies limited range of motion, Denies muscle cramps, Denies muscle weakness, Denies numbness, Denies radiating pain into limb, Denies stiffness and Denies tingling Neuro Denies abnormal gait, Denies dizziness, Denies numbness and Denies tingling Endo Denies palpitations Physical Exam Vital Signs: Last Vital Signs Pulse 72 01/27/23 13:42 BP 140/82 H 01/27/23 13:42 BMI result Body Mass Index 28.0 Const General: cooperative, healthy appearing, comfortable and no acute distress Orientation/consciousness: patient oriented x3 Neck Neck: Yes normal visual inspection Resp Effort & Inspection: normal respiratory effort Auscultation: clear to auscultation bilaterally, no crackles, no rales, no rhonchi and no wheezes Cardio Jugular venous distension: no JVD Rate: regular rate Rhythm: regular rhythm Heart sounds: S1 normal heart sound present, S2 normal heart sound present, no murmurs and no rubs Neuro General: patient oriented x3 Extrem General: Yes normal to inspection and No no pedal edema Psych Appearance: grossly normal Mental Status: mental status grossly normal Speech and movement: Normal speech and movement present Assessment & Plan Assessment & Plan (1) Abnormal EKG: Code(s): R94.31 - Abnormal electrocardiogram [ECG] [EKG] Plan: Recent EKG with sinus rhythm, nonspecific ST and T-wave abnormalities. She has no known history of heart disease. Cardiac risk factors hyperlipidemia, advanced age. She underwent an exercise nuclear stress test on 12/11/2022 with exercise 9 minutes, no anginal symptoms, no ischemic changes on EKG and normal myocardial perfusion imaging. An echocardiogram was done 12/11/2022 showing EF 55-60%, mild aortic regurgitation, early mild aortic stenosis, ascending aorta 3.9 cm. Spent time reviewing results with her in detail. Recommend repeat echocardiogram in 2 years. She prefers to have this done through her PCP Dr. Post. At this time her cardiology follow-up can be as needed. Signs and symptoms of angina reviewed with her. Emergency care if ever needed for symptoms. (2) Aortic stenosis: Code(s): I35.0 - Nonrheumatic aortic (valve) stenosis Plan: Recent echo with finding of mild aortic regurgitation and early mild aortic stenosis. No significant murmur noted on examination. Patient is healthy and active. Recommend repeat echocardiogram in about 2 years to re-evaluate valve. Will forward this note to her PCP (3) Elevated blood pressure reading without diagnosis of hypertension: Code(s): R03.0 - Elevated blood-pressure reading, without diagnosis of hypertension Plan: She tells me when she comes to this office her blood pressure is high. When she is at her PCP office her blood pressure is normal. She does not have a known history of hypertension and does not take any antihypertensives. This can be further followed by her PCP. Coding Level of Care Code Est Pt Level 3 (69464) Diagnoses Abnormal EKG R94.31 Aortic stenosis I35.0 Elevated blood pressure reading without diagnosis of hypertension R03.0 Time Spent (min) 24
== END 2023-01-27 14:12 | disposition home or self-care (01) ==
PROVIDERS: PCP Internal Medicine; Visit Provider Nurse Practitioner Family
DX: R94.31 Abnormal electrocardiogram [ECG] [EKG] (principal); I35.0 Nonrheumatic aortic (valve) stenosis; R03.0 Elevated blood-pressure reading, without diagnosis of hypertension
CPT/HCPCS: 99213

== ENCOUNTER → 2023-01-27 13:39 | Outpatient (BNVA) | payer MEDICARE, OTHER, SELFPAY | PROVIDERS: PCP Internal Medicine; Visit Provider Nurse Practitioner Family | DX: I35.0 Nonrheumatic aortic (valve) stenosis (principal); R03.0 Elevated blood-pressure reading, without diagnosis of hypertension; E78.5 Hyperlipidemia, unspecified; R94.31 Abnormal electrocardiogram [ECG] [EKG] | CPT/HCPCS: 99212 ==

== ENCOUNTER 2023-03-17 11:45 | Outpatient (REF) | payer MEDICARE, OTHER, SELFPAY ==
[2023-03-17 13:01] LABS: Alanine Aminotransferase 15 U/L (0-31); Albumin Level 4.2 g/dL (3.5-5.0); Alkaline Phosphatase 83 U/L (39-117); Aspartate Amino Transferase 20 U/L (5-31); Bilirubin Direct 0.3 mg/dL (0.0-0.5); Bilirubin Total 0.9 mg/dL (0.0-1.0); Total Protein 6.6 g/dL (6.5-8.0)
[2023-03-17 13:11] LABS: Cholesterol 188 mg/dL (<200); HDL Cholesterol 58 mg/dL (>40); LDL Cholesterol Calculated 113 mg/dL (<100); Triglycerides 85 mg/dL (<150)
[2023-03-17 14:04] LABS: Reflex LDLD? No
== END 2023-03-17 11:46 | disposition home or self-care (01) ==
LOC: HO.LNP 11:45
PROVIDERS: Visit Provider Internal Medicine
DX: E78.00 Pure hypercholesterolemia, unspecified (principal)
CPT/HCPCS: 80061; 80076

== ENCOUNTER 2023-08-13 10:35 | Outpatient (REF) | payer MEDICARE, OTHER, SELFPAY ==
[2023-08-13 10:40] LABS: MANUAL DIFF FLAG NO
[2023-08-13 11:17] LABS: Basophils Absolute Auto 0.1 X10*3/uL (0.0-0.2); Basophils Percent Auto 1.4 % (0-2); Eosinophils Absolute Auto 0.2 X10*3/uL (0.0-0.4); Eosinophils Percent Auto 2.7 % (0-4); Hematocrit 47.2 % (37.0-47.0); Hemoglobin 15.5 g/dl (12.0-16.0); Imm Gran Abs Auto 0.02 X10*3/uL (0.00-0.03); Imm Gran Pct Auto 0.4 % (0.0-0.4); Lymphocytes Absolute Auto 1.9 X10*3/uL (1.2-4.9); Lymphocytes Percent Auto 34.4 % (20-40); Mean Corpuscular HGB Conc 32.8 g/dl (31.0-35.0); Mean Corpuscular Volume 91.3 fL (80.0-98.0); Mean Platelet Volume 10.9 fL (9.4-12.3); Monocytes Absolute Auto 0.4 X10*3/uL (0.1-1.2); Monocytes Percent Auto 6.5 % (2-11); Neutrophils Percent Auto 54.6 % (45-73); Platelet Count 235 X10*3/uL (160-400); Red Blood Count 5.17 X10*6/uL (4.20-5.50); Red Cell Distribution Width 12.6 % (11.0-16.0); White Blood Count 5.5 X10*3/uL (4.8-10.8)
[2023-08-13 11:19] LABS: Appearance Urine Clear; Color Urine Yellow; Glucose Urine UA Negative (Negative); Leukocyte Esterase Urine Negative (Negative); Nitrite Urine Negative (Negative); Urine Blood Negative (Negative); Urine Ketones Negative (Negative); Urine Protein Negative (Neg-Trace)
[2023-08-13 11:55] LABS: Vitamin D 25-OH Total 64.1 ng/mL (>30)
[2023-08-13 12:05] LABS: Anion Gap 13 (12-20)
[2023-08-13 12:10] LABS: Alanine Aminotransferase 21 U/L (0-31); Albumin Level 4.3 g/dL (3.5-5.0); Alkaline Phosphatase 86 U/L (39-117); Aspartate Amino Transferase 25 U/L (5-31); Bilirubin Total 1.5 mg/dL (0.0-1.0); Blood Urea Nitrogen 17 mg/dL (9-16); Calcium 9.6 mg/dL (8.4-10.2); Carbon Dioxide 27 mmol/L (22-29); Chloride 107 mmol/L (96-108); Cholesterol 216 mg/dL (<200); Estimated Glomerular Filt Rate > 60; Glucose Fasting 84 mg/dL (60-99); HDL Cholesterol 61 mg/dL (>40); LDL Cholesterol Calculated 130 mg/dL (<100); Potassium 3.8 mmol/L (3.3-5.1); Sodium 143 mmol/L (135-145); Total Protein 6.7 g/dL (6.5-8.0); Triglycerides 125 mg/dL (<150)
== END 2023-08-13 10:36 | disposition home or self-care (01) ==
LOC: HO.LNP 10:35
PROVIDERS: Visit Provider Internal Medicine
DX: E78.00 Pure hypercholesterolemia, unspecified (principal); E67.3 Hypervitaminosis D; Z87.448 Personal history of other diseases of urinary system
CPT/HCPCS: 80053; 80061; 81003; 82306; 85025

== ENCOUNTER 2023-11-17 11:47 | Outpatient (REF) | payer MEDICARE, OTHER, SELFPAY ==
[2023-11-17 12:18] LABS: Alanine Aminotransferase 22 U/L (0-31); Albumin Level 4.3 g/dL (3.5-5.0); Alkaline Phosphatase 80 U/L (39-117); Aspartate Amino Transferase 25 U/L (5-31); Bilirubin Direct 0.4 mg/dL (0.0-0.5); Bilirubin Total 1.6 mg/dL (0.0-1.0); Cholesterol 193 mg/dL (<200); HDL Cholesterol 52 mg/dL (>40); LDL Cholesterol Calculated 117 mg/dL (<100); Total Protein 6.8 g/dL (6.5-8.0); Triglycerides 121 mg/dL (<150)
== END 2023-11-17 11:48 | disposition home or self-care (01) ==
LOC: HO.LNP 11:47
PROVIDERS: Visit Provider Internal Medicine
DX: E78.00 Pure hypercholesterolemia, unspecified (principal)
CPT/HCPCS: 80061; 80076

== ENCOUNTER 2024-08-15 11:38 | Outpatient (REF) | payer MEDICARE, OTHER, SELFPAY ==
[2024-08-15 11:40] LABS: MANUAL DIFF FLAG NO
[2024-08-15 12:29] LABS: Basophils Absolute Auto 0.1 X10*3/uL (0.0-0.2); Basophils Percent Auto 0.9 % (0-2); Eosinophils Absolute Auto 0.1 X10*3/uL (0.0-0.4); Eosinophils Percent Auto 2.5 % (0-4); Hematocrit 47.2 % (37.0-47.0); Hemoglobin 15.3 g/dl (12.0-16.0); Imm Gran Abs Auto 0.02 X10*3/uL (0.00-0.03); Imm Gran Pct Auto 0.4 % (0.0-0.4); Lymphocytes Absolute Auto 1.7 X10*3/uL (1.2-4.9); Lymphocytes Percent Auto 29.9 % (20-40); Mean Corpuscular HGB Conc 32.4 g/dl (31.0-35.0); Mean Corpuscular Hemoglobin 29.5 pg (27.0-33.0); Mean Corpuscular Volume 91.1 fL (80.0-98.0); Mean Platelet Volume 10.9 fL (9.4-12.3); Monocytes Absolute Auto 0.4 X10*3/uL (0.1-1.2); Monocytes Percent Auto 6.2 % (2-11); Neutrophils Absolute Auto 3.4 x10*3/uL (2.0-8.3); Neutrophils Percent Auto 60.1 % (45-73); Platelet Count 201 X10*3/uL (160-400); Red Blood Count 5.18 X10*6/uL (4.20-5.50); Red Cell Distribution Width 12.8 % (11.0-16.0); White Blood Count 5.7 X10*3/uL (4.8-10.8)
[2024-08-15 12:40] LABS: Appearance Urine Clear; Color Urine Yellow; Glucose Urine UA Negative (Negative); Leukocyte Esterase Urine Trace (Negative); Nitrite Urine Negative (Negative); UMIC TRIGGER UACC YES; Urine Blood Negative (Negative); Urine Ketones Negative (Negative); Urine Protein Negative (Neg-Trace)
--- OUTSIDE RECORDS SUMMARY | 2024-08-15 13:26 | XMS_ITS ---
Author Organization Germán Post MD Address [address] [place], [place] [phone] Care Team Providers Care Truck Mechanic Name Role Phone Germán Post Primary Care Provider Results Component Value Reference Range Notes Complete Blood Count Auto Di ff Reviewed date:08/15/2024 12:35:19 PM Interpretation: Performing Lab:[facility], [address] [place] [phone] Notes/Report: White Blood Count 5.7 4.8-10.8 X10*3/uL Red Blood Count 5.18 4.20-5.50 X10*6/uL Hemoglobin 15.3 12.0-16.0 g/dl Hematocrit 47.2 37.0-47.0 % Mean Corpuscular Volume 91.1 80.0-98.0 fL Mean Corpuscular Hemoglobin 29.5 27.0-33.0 pg Mean Corpuscular HGB Conc 32.4 31.0-35.0 g/dl Red Cell Distribution Width 12.8 11.0-16.0 % Platelet Count 201 160-400 X10*3/uL Mean Platelet Volume 10.9 9.4-12.3 fL Neutrophils Percent Auto 60.1 45-73 % Imm Gran Pct Auto 0.4 0.0-0.4 % Lymphocytes Percent Auto 29.9 20-40 % Monocytes Percent Auto 6.2 2-11 % Eosinophils Percent Auto 2.5 0-4 % Basophils Percent Auto 0.9 0-2 % NRBC Pct Auto 0.0 0.0-0.2 /100WBC Neutrophils Absolute Auto 3.4 2.0-8.3 x10*3/u L Imm Gran Abs Auto 0.02 0.00-0.03 X10*3/uL Lymphocytes Absolute Auto 1.7 1.2-4.9 X10*3/u L Monocytes Absolute Auto 0.4 0.1-1.2 X10*3/uL Eosinophils Absolute Auto 0.1 0.0-0.4 X10*3/u L Basophils Absolute Auto 0.1 0.0-0.2 X10*3/uL NRBC Abs Auto 0.000 0.0-0.012 X10*3/uL REASON FOR VISIT fasting yearly labs Encounters Encounter Location Date Provider Diagnosis Germán Post MD [address] [place], [place] [phone] 08/15/2024 Germán Post Pure hypercholestero lemia E78.00 and High vitamin D level E67.3 Assessments Encounter Date Diagnosis (ICD Code) Assessment Notes Treatment Notes Treatment Clinical Notes Section Notes 08/15/2024 Pure hypercholesterolemia (ICD-10 - E78.00) 08/15/2024 High vitamin D level (ICD-10 - E67.3) Plan Of Treatment Pending Test Test Name Order Date Comprehensive [place]. Panel Fast Lipid Panel 08/15/2024 Vitamin D 25-OH Total 08/15/2024 UA ClnCatch+Micro w/rflx Cult 08/15/2024 Next Appt Details Provider Name:Germán Dukes ier, 08/22/2024 09:30:00 AM, [address] [place] [address], [address], [place], [place], [phone], Progress Notes * Brionna TOTH PDOB:1945 (78 yo F)Acc No.[id number]:08/15/2024 Progress Note Patient:?JANEY Brionna Gong Provider:?Germán Post MD :1945???Age:78 Y???Sex:Female D ate:08/15/2024 Address:[address] [place], [place] [phone] Subjective: * Chief Complaints: * ???1. Fasting yearly labs. * Medical History:? Objective: * Vitals:? Assessment: * Assessment: 1.?Pure hypercholesterolemia - E78.00 (Primary)???2.?High vitamin D level - E67.3??? Plan: * Treatment: 2.?High vitamin D level?LAB: Comprehensive [place]. Panel Fast ?LAB: Lipid Panel ?LAB: Vitamin D 25-OH Total ?LAB: UA ClnCatch+Micro w/rflx Cult ?LAB: Complete Blood Count Auto Diff (Collection Date & Time - 08/15/2024 07:15 AM) * Procedure Codes:?74946 VENIP UNCT, ROUTINE* * * The named appointment provid er may or may not be the originator of this progress note, and it is not deemed complete until electronically signed by the appointment provider. Sign off status: Pending * Provider:?Germán Post MD Date:?0 08/15/2024 Generated for Luis mckeon/Shabana/Kendra on:?08/15/2024 01:26 PM EDT
--- OUTSIDE RECORDS SUMMARY | 2024-08-15 13:26 | XMS_ITS ---
Author Organization Germán Post MD Address [address] [place], [place] [phone] Care Team Providers Care Meat Inspector Name Role Phone Germán Post Primary Care Provider [phone] Allergies Allergen (clinical drug ingredient) Drug/Non Drug Allergy documented on EMR Reaction Allergy Type Onset Date Status atorvastatin Atorvastatin Calcium elevated lft's Drug Allergy Active REASON FOR VISIT 6 month Medications Medication SIG (Take, Route, Frequency, Duration) Notes Start Date End Date Status Diclofenac Sodium 75 MG 1 tablet as need ed Orally Twice a day Active Pravastatin Sodium 40 MG take 1 tablet b y mouth once a day Orally Once a day for 90 days Active Albuterol Sulfate HFA 108 (90 Base) MCG/ACT 1 puff as needed Inhalation every 4 hrs for 30 days 08/18/2023 Active Vital Signs Blood pressure systolic 172 mm Hg 02/19/20 24 Blood pressure diastolic 90 mm Hg 024 Height 63.25 in 02/19/2024 Weight 153 lbs 02/19/2024 BMI 26.89 kg/m2 02/19/2024 weight is down 6 pounds [facility] e 08-18-23 Encounters Encounter Location Date Provider Diagnosis Germán Post MD [address] [place], [place] [phone] 02/19/2024 Germán Post Mild aortic stenosis I35.0 ; Labile hypertension R09.89 and Pure hypercholesterolemia E78.00 Assessments Encounter Date Diagnosis (ICD Code) Assessment Notes Treatment Notes Treatment Clinical Notes Section Notes 02/19/2024 Mild aortic stenosis (ICD-10 - I35.0) is not severe. will follow with an echo in 2 years 02/19/2024 Labile hypertension (ICD-10 - R09.89) was high when she first came in and after sitting for a period is fine 02/19/2024 Pure hypercholesterolemia (ICD-10 - E78.00) is well controlled on meds and lft's are good Plan Of Treatment Treatment Notes Assessment Notes Mild aortic stenosis is not severe. will follow with an echo in 2 years Labile hypertension was high when she fi rst came in and after sitting for a period is fine Pure hypercholesterolemia is well contro lled on meds and lft's are good Next Appt Details Provider Name:Germán Dukes ier, 08/22/2024 09:30:00 AM, [address] [facility], [address], [place], [place], [phone], Progress Notes * Brionna TOTH PDOB:1945 (78 yo F)Acc No.[id number]:02/19/2024 Progress Notes Patient:?Brionna Toth P Provider:?Germán Post MD :1945???Age:78 Y???Sex:Female D ate:02/19/2024 Address:[address] [place], [place] [phone] Subjective: * Chief Complaints: * ???6 month * HPI: ???Symptom(s):? patent is a 78 yo female here for 6 month follow up visit. * ROS:?General/Constitutional:?Denies?Chills.?Denies?Fatigue.?Denies?Fever.?Denies?Headache.?ENT:?Patient denies?decreased sense of smell , any loss of taste , sore throat.?Denies?Sore throat.?Respiratory:?Denies?Cough.?Denies?Shortness of breath at rest.?Denies?Shortness of breath with exertion.?Gastrointestinal:?Denies?Diarrhea.?Denies?Nausea.?Musculoskeletal:?Patient denies?muscle aches.?Peripheral Vascular:?Patient denies?red and blue toes.? * Medical History:? * Surgical History:? * Hospitalization/Major Diagno stic Procedure:? * Medications:?TakingDiclofena c Sodium 75 MG Tablet Delayed Release 1 tablet as needed Orally Twice a dayAlbuterol Sulfate HFA 108 (90 Base) MCG/ACT Aerosol Solution 1 puff as needed Inhalation every 4 hrsPravastatin Sodium 40 MG Tablet take 1 tablet by mouth once a day Orally Once a dayMedication List reviewed and reconciled with the patientTaking Diclofenac Sodium 75 MG Tablet Delayed Release 1 tablet as needed Orally Twice a dayTaking Albuterol Sulfate HFA 108 (90 Base) MCG/ACT Aerosol Solution 1 puff as needed Inhalation every 4 hrsTaking Pravastatin Sodium 40 MG Tablet take 1 tablet by mouth once a day Orally Once a dayMedication List reviewed and reconciled with the patient * Allergies:?Atorvastatin Calc ium: elevated lft'syes[Allergies Verified] Objective: * Vitals:?Ht: 63.25, Wt:153, B OK:26.89, BP:172/90, Repeat BP:120/70 weight is down 6 pounds since 08-18-23. * Examination: ???General Examination: ?GENERAL APPEARANCE:?alert, well hydrated, in no distress.?HEAD:?normocephalic.?SKIN:?good turgor.?HEART:?no murmurs, rubs, gallops , regular rate and rhythm.?LUNGS:?no wheezes, rales, rhonchi , good air movement , clear to auscultation bilaterally.? Assessment: * Assessment: 1.?Mild aortic stenosis - I3 5.0 (Primary)?2.?Labile hypertension - R09.89?3.?Pure hypercholesterolemia - E78.00? Plan: * Treatment: 2.?Labile hypertension? Notes: was high when she first came in and after sitting for a period is fine?? 3.?Pure hypercholesterolemia ? Notes: is well controlled on meds and lft's are good?? * Procedure Codes:? * * Sign off status: Completed true * Provider:?Germán Post MD Date:?04/20/2023 Generated for Luis mckeon/Shabana/eTransmitting on:?08/15/2024 01:26 PM EDT History and Physical Notes * HPI (History of Present Illness) Category Sub-Category Detail Notes Category Not es Symptom(s) patent is a 78 yo female here for 6 month follow up visit Examination Category Sub-Category Detail Notes Category Not es General Examination GENERAL APPEARANCE: alert, w ell hydrated, in no distress HEAD: normocephalic HEART: no murmurs, rubs, ga llops , regular rate and rhythm LUNGS: no wheezes, rales, r honchi , good air movement , clear to auscultation bilaterally SKIN: good turgor
--- OUTSIDE RECORDS SUMMARY | 2024-08-15 13:27 | XMS_ITS | Patient Health Record ---
Author Organization Germán Post MD Address [address] [place], [place] [phone] Care Team Providers Care Lacquer Sizer Name Role Phone Germán oPst Primary Care Provider Allergies Allergen (clinical drug ingredient) Drug/Non Drug Allergy documented on EMR Reaction Allergy Type Onset Date Status atorvastatin Atorvastatin Calcium elevated lft's Drug Allergy Active Results Component Value Reference Range Notes Liver Panel Reviewed date:11/17/2023 04:01:02 PM Interpretation: Performing Lab:[facility], [address] [place] [phone] Notes/Report: Bilirubin Total 1.6 0.0-1.0 mg/dL Bilirubin Direct 0.4 0.0-0.5 mg/dL Slight Hem olysis Aspartate Amino Transferase 25 5-31 U/L Slight Hemolysis Alanine Aminotransferase 22 0-31 U/L Total Protein 6.8 6.5-8.0 g/dL Albumin Level 4.3 3.5-5.0 g/dL Alkaline Phosphatase 80 39-117 U/L Lipid Panel Reviewed date:11/17/2023 04:03:40 PM Interpretation: Performing Lab:[facility], [address] [place] [phone] Notes/Report: Triglycerides 121 <150 mg/dL Desirable Triglyceride: less than 150 mg/dL Borderline High Triglyceride 150-199 mg/dL High Triglyceride: 200-499 mg/dL Very High Triglyceride: greater than or equal to 5OO mg/dL Cholesterol 193 <200 mg/dL Desirable Cholesterol: less than 200 mg/dL Borderline High Cholesterol: 200-239 mg/dL High Cholesterol: greater than 239 mg/dL LDL Cholesterol Calculated 117 <100 mg/dL Desirable LDL: less than 100 mg/dL Near Optimal/Above Optimal LDL: 110-129 mg/dL Borderline High LDL: 130-159 mg/dL High LDL: 160-189 mg/dL Very High LDL: greater than or equal to 190 mg/dL HDL Cholesterol 52 >40 mg/dL Desirable HDL: greater than 40 mg/dL Note: This HDL assay may give artificially low results in patients with liver disease. Complete Blood Count Auto Di ff Reviewed date:08/15/2024 12:35:19 PM Interpretation: Performing Lab:[facility], [address] [place] [phone] Notes/Report: White Blood Count 5.7 4.8-10.8 X10*3/uL [...] X10*3/uL NRBC Abs Auto 0.000 0.0-0.012 X10*3/uL Reason For Referral No Information Medications Medication SIG (Take, Route, Frequency, Duration) Notes Start Date End Date Status Diclofenac Sodium 75 MG 1 tablet as need ed Orally Twice a day Active Albuterol Sulfate HFA 108 (90 Base) MCG/ACT 1 puff as needed Inhalation every 4 hrs for 30 days 08/18/2023 Active Pravastatin Sodium 40 MG TAKE 1 TABLET B Y MOUTH ONCE A DAY for 90 Active Immunizations Vaccine Route Administration Date Status Comme nts PPSV23 (Pnemovax) IM Intramuscular 09/20/2012 Administered Fluarix Quadrivalent IM Intramuscular 01/13/2014 Administe red Flu Vaccine IM Intramuscular 02/06/2016 Administered [facility] Prevnar 13 IM Intramuscular 12/04/2016 Administered Fluarix Quadrivalent Unknown 04/09/2017 Administered [facility] Fluarix Quadrivalent IM Intramuscular 12/22/2017 Administe red PPSV23 (Pnemovax) IM Intramuscular 12/24/2017 Administered Influenza High Dose IM Intramuscular 01/17/2019 Administer ed Shingrix Unknown 11/23/2018 Administered Shingrix Unknown 05/04/2019 Administered Influenza High Dose Unknown 01/19/2020 Administered Pha rm Covid Vaccine Unknown 05/11/2020 Administered Pfizer Covid Vaccine Unknown 06/01/2020 Administered Pfizer Influenza High Dose Unknown 01/23/2021 Administered [facility] SARS-COV-2 Pfizer Unknown 03/19/2021 Administered Hepatitis A (adult) Unknown 10/22/2023 Administered [facility] Hepatitis B Unknown 10/22/2023 Administered [facility] Social History Tobacco Use: Social History Observation Description Date Details (start date - stop date) Never Smoker NA - NA Tobacco Use/Smoking Question Answer Notes Patient is a nonsmoker Additional Findings: Tobacco Non-User Cu rrent non-smoker, currently using no form of tobacco Alcohol Screen Question Answer Notes Did you have a drink containing alcohol in the p ast year? No Points 0 Interpretation Negative Problems Problem Type SNOMED Code ICD Code Onset Dates Problem Status W/U Status Risk Notes Problem Aortic stenosis (I35.0) Active confirme d Problem 557733606 Osteopenia (M85.80) Active confirmed Problem 924047999 Adenoma of rectu m (D12.8) Active confirmed Problem 041664220 History of hemat uria (Z87.448) Active confirmed Problem 398377603 Mild intermitten t asthma with acute exacerbation (J45.21) Active confirmed Problem 130516995 Mild aortic sten osis (I35.0) Active confirmed Problem 654225965 Pure hypercholesterolemia (E78.00) Active confirmed Problem 99674382 Elevated cholest katherine (E78.00) Active confirmed Problem 19909001 High vitamin D l evel (E67.3) Active confirmed Vital Signs Blood pressure diastolic 90 mm Hg 02/19/2024 sana ght is down 6 pounds since 08-18-23 Height 63.25 in 02/19/2024 weight is down 6 pounds since 08-18-23 Blood pressure systolic 172 mm Hg 02/19/2024 weig ht is down 6 pounds since 08-18-23 Weight 153 lbs 02/19/2024 weight is down 6 pounds since 08-18-23 BMI 26.89 kg/m2 02/19/2024 weight is down 6 pounds since 08-18-23 Encounters Encounter Location Date Provider Diagnosis Germán Post MD [address] [place] [phone] 11/17/2023 Germán Post Pure hypercholestero lemia E78.00 and Elevated cholesterol E78.00 Germán Post MD [address] [place] [phone] 08/15/2024 Germán Post Pure hypercholestero lemia E78.00 and High vitamin D level E67.3 Germán Post MD [address] [place] [phone] 08/18/2023 Germán Post Elevated cholesterol E78.00 ; History of asthma Z87.09 and Aortic stenosis I35.0 Germán Post MD [address] [place] [phone] 02/19/2024 Germán Post Mild aortic stenosis I35.0 ; Labile hypertension R09.89 and Pure hypercholesterolemia E78.00 Assessments Encounter Date Diagnosis (ICD Code) Assessment Notes Treatment Notes Treatment Clinical Notes Section Notes 11/17/2023 Pure hypercholesterolemia (ICD-10 - E78.00) 11/17/2023 Elevated cholesterol (ICD-10 - E78.00) 08/15/2024 Pure hypercholesterolemia (ICD-10 - E78.00) 08/15/2024 High vitamin D level (ICD-10 - E67.3) 08/18/2023 Elevated cholesterol (ICD-10 - E78.00) stable, will continue current regiment 08/18/2023 History of asthma (ICD-10 - Z87.09) patient verbalized medications and directions for use 02/19/2024 Mild aortic stenosis (ICD-10 - I35.0) is not severe. will follow with an echo in 2 years 02/19/2024 Labile hypertension (ICD-10 - R09.89) was high when she first came in and after sitting for a period is fine 08/18/2023 Aortic stenosis (ICD -10 - I35.0) repeat echo on is in future folder, pending future diagnostic testing 02/19/2024 Pure hypercholesterolemia (ICD-10 - E78.00) is well controlled on meds and lft's are good Plan Of Treatment Pending Test Test Name Order Date Electrocardiogram (EKG) 12/04/2016 CT CHEST WITH CONTRAST 08/04/2011 Comprehensive [place]. Panel Fast Lipid Panel 08/15/2024 Vitamin D 25-OH Total 08/15/2024 CA echo limited 01/30/2023 US abdomen complete 01/29/2021 UA ClnCatch+Micro w/rflx Cult 08/15/2024 Future Test Test Name Order Date BONE DENSITY DEXA 02/08/2020 Next Appt Details Provider Name:Germán ceja, 08/22/2024 09:30:00 AM, [address] [place] [address], [address], [place], [place], [phone], Insurance Providers Payer Name Payer Address Payer Phone Subscriber Number Group Number Insured Name Patient Relationship to Insured Coverage Start Date Coverage End Date MEDICARE NHIC JOE [address] [place] [address] [id number] Brionna Vides Self - patient is the insured [facility] [address] [place] [phone] [id number] Brionna Vides Self - patient is the insured Medical (General) History Medical History History ICD Code hematuria followed by dr kic k had ct of abdomen and repeat in one year with a cyst unchanged. no need for follow up CAT SCAN CHEST no change in 2 years no n eed for further folllow up colonoscopy, 2010 repeat in 5 years; colonoscopy 03/12/16 w/Dr. Garcia - NO MORE INDICATED 11/08/2013 - going for pap smear in Janob er 2013 ([facility]) 11/16/2013 - bone density (repeat 2 years) ; done 01/2016 Lung nodules R91.8
--- OUTSIDE RECORDS SUMMARY | 2024-08-15 13:27 | XMS_ITS ---
Author Organization Germán Post MD Address [address] [place], [place] [phone] Care Team Providers Care Arcade Games Mechanic Name Role Phone Germán Post Primary Care Provider Results Component Value Reference Range Notes Liver Panel Reviewed date:11/17/2023 04:01:02 PM Interpretation: Performing Lab:[facility], [address] [place] [phone] Notes/Report: Bilirubin Total 1.6 0.0-1.0 mg/dL Bilirubin Direct 0.4 0.0-0.5 mg/dL Slight Hem olysis Aspartate Amino Transferase 25 5-31 U/L Slight Hemolysis Alanine Aminotransferase 22 0-31 U/L Total Protein 6.8 6.5-8.0 g/dL Albumin Level 4.3 3.5-5.0 g/dL Alkaline Phosphatase 80 39-117 U/L Lipid Panel Reviewed date:11/17/2023 04:03:40 PM Interpretation: Performing Lab:[facility], [address] [place] [phone] Notes/Report: Triglycerides 121 <150 mg/dL Desirable Triglyceride: [...] low results in patients with liver disease. REASON FOR VISIT liver lipids Encounters Encounter Location Date Provider Diagnosis Germán Post MD [address] [place], [place] [phone] 11/17/2023 Germán Post Pure hypercholestero lemia E78.00 and Elevated cholesterol E78.00 Assessments Encounter Date Diagnosis (ICD Code) Assessment Notes Treatment Notes Treatment Clinical Notes Section Notes 11/17/2023 Pure hypercholesterolemia (ICD-10 - E78.00) 11/17/2023 Elevated cholesterol (ICD-10 - E78.00) Plan Of Treatment Next Appt Details Provider Name:Germán Dukes ier, 08/22/2024 09:30:00 AM, [address] [facility], [address], [place], [place], [phone], Progress Notes * Brionna TOTH PDOB:1945 (78 yo F)Acc No.[id number]:11/17/2023 Progress Note Patient:?JIGNAKarime Brionna P Provider:?Germán Post MD :1945???Age:78 Y???Sex:Female D ate:11/17/2023 Address:[address] [place], [place] [phone] Subjective: * Chief Complaints: * ???1. Liver lipids. * Medical History:? Objective: * Vitals:? Assessment: * Assessment: 1.?Pure hypercholesterolemia - E78.00 (Primary)???2.?Elevated cholesterol - E78.00??? Plan: * Treatment: * Procedure Codes:?82379 VENIP UNCT, ROUTINE* * * The named appointment provid er may or may not be the originator of this progress note, and it is not deemed complete until electronically signed by the appointment provider. Sign off status: Pending * Provider:?Germán Post MD Date:?0 11/17/2023 Generated for Luis mckeon/Shabana/Kendra on:?08/15/2024 01:26 PM EDT
[2024-08-15 13:38] LABS: Bacteria Urine None Seen (None Seen); Hyaline Casts Urine 0-2 /LPF (0-2); RBC Urine 0-2 /HPF (0-2); Squamous Epithelial Cell Urine 0-2 /HPF (0-2); WBC Urine 0-5 /HPF (0-5)
[2024-08-15 13:40] LABS: Alanine Aminotransferase 23 U/L (0-31); Albumin Level 4.2 g/dL (3.5-5.0); Alkaline Phosphatase 75 U/L (39-117); Anion Gap 12 (12-20); Aspartate Amino Transferase 30 U/L (5-31); Bilirubin Total 1.2 mg/dL (0.0-1.0); Blood Urea Nitrogen 12 mg/dL (9-16); Calcium 8.9 mg/dL (8.4-10.2); Carbon Dioxide 27 mmol/L (22-29); Chloride 109 mmol/L (96-108); Cholesterol 192 mg/dL (<200); Estimated Glomerular Filt Rate > 60; Glucose Fasting 79 mg/dL (60-99); Potassium 3.6 mmol/L (3.3-5.1); Sodium 144 mmol/L (135-145); Total Protein 6.3 g/dL (6.5-8.0); Triglycerides 157 mg/dL (<150)
[2024-08-15 13:46] LABS: HDL Cholesterol 61 mg/dL (>40); LDL Cholesterol Calculated 100 mg/dL (<100); Vitamin D 25-OH Total 67.6 ng/mL (>30)
== END 2024-08-15 11:39 | disposition home or self-care (01) ==
LOC: HO.LNP 11:38
PROVIDERS: Visit Provider Internal Medicine
DX: E78.00 Pure hypercholesterolemia, unspecified (principal); E67.3 Hypervitaminosis D
CPT/HCPCS: 80053; 80061; 81001; 82306; 85025

== ENCOUNTER 2025-02-24 11:01 | Outpatient (REF) | payer MEDICARE, OTHER, SELFPAY ==
[2025-02-24 11:52] LABS: Alanine Aminotransferase 32 U/L (0-31); Albumin Level 4.6 g/dL (3.5-5.0); Alkaline Phosphatase 89 U/L (39-117); Aspartate Amino Transferase 40 U/L (5-31); Cholesterol 193 mg/dL (<200); HDL Cholesterol 54 mg/dL (>40); Total Protein 6.8 g/dL (6.5-8.0); Triglycerides 156 mg/dL (<150)
== END 2025-02-24 11:02 | disposition home or self-care (01) ==
LOC: HO.LNP 11:01
PROVIDERS: Visit Provider Internal Medicine
DX: E78.00 Pure hypercholesterolemia, unspecified (principal)
CPT/HCPCS: 80061; 80076